=== PATIENT | female | born 1945 | race Caucasian/White ===

== ENCOUNTER 2019-05-28 11:59 | Inpatient (IN) ==
[2019-05-28] MEDS ORDERED: Naloxone 0.4 MG/ML INJ IVP PRN (15:20)
[2019-05-28] MEDS ORDERED: Ondansetron 4 MG/2 ML VIAL IVP PRN (15:20)
[2019-05-28] MEDS ORDERED: Albuterol 2.5 MG/3 ML NEBULIZER IH PRN (16:38)
[2019-05-28] MEDS: Furosemide 40 MG/4 ML VIAL IVP SCH (18:01)
[2019-05-28 19:01] LABS: Folate > 22.3 ng/mL (3.0-16.0); Vitamin B12 342 pg/mL (250-1100)
[2019-05-28] MEDS: *HR* Heparin 5,000 UNIT/ML VIAL SQ SCH (21:35)
[2019-05-29] MEDS: *HR* Heparin 5,000 UNIT/ML VIAL SQ SCH ×3 (05:46→22:49)
[2019-05-29 18:51] LABS: Calcium 9.7 mg/dL (8.6-10.3); Potassium 3.8 mEq/L (3.5-5.1)
[2019-05-29 18:55] LABS: Basophils % 0.4 %; Eosinophils # 0.1 K/mcL (0.0-0.6); Eosinophils % 1.7 %; Hematocrit 36.2 % (35.3-44.9); Hemoglobin 11.4 g/dL (11.5-15.4); Immature Granulocytes % 0.5 % (0-4); Lymphocytes # 1.2 K/mcL (0.6-4.6); Lymphocytes % 14.9 %; Mean Corpuscular HGB Conc 31.5 g/dL (31.6-35.5); Mean Corpuscular Hemoglobin 28.9 pg (28.0-33.3); Mean Corpuscular Volume 91.9 fL (83.0-100.0); Mean Platelet Volume 10.5 fL (9.4-12.4); Monocytes # 0.7 K/mcL (0.0-1.3); Monocytes % 8.4 %; Neutrophils # 6.1 K/mcL (1.6-8.9); Platelet Count 262 K/mcL (140-400); Red Blood Count 3.94 M/mcL (3.82-4.97); Red Cell Distribution Width 13.1 % (11.5-14.5); Segmented Neutrophils % 74.1 %; White Blood Count 8.2 K/mcL (4.3-11.1)
[2019-05-29] MEDS: Fluticasone Propionate Nasal 50 MCG/SPRAY BOTTLE NS SCH (21:33)
[2019-05-29] MEDS: Furosemide 40 MG/4 ML VIAL IVP SCH (21:34)
[2019-05-29] MEDS: Isosorbide MONOnitrate (24 HR) 60 MG TAB.ER.24H PO SCH (21:34)
[2019-05-29] MEDS: Lisinopril 20 MG TABLET PO SCH (21:35)
[2019-05-29] MEDS: amLODIPine 5 MG TABLET PO SCH (21:35)
[2019-05-30 04:01] LABS: Hematocrit 36.4 % (35.3-44.9); Hemoglobin 11.7 g/dL (11.5-15.4); Mean Corpuscular HGB Conc 32.1 g/dL (31.6-35.5); Mean Corpuscular Hemoglobin 28.8 pg (28.0-33.3); Mean Corpuscular Volume 89.7 fL (83.0-100.0); Mean Platelet Volume 10.5 fL (9.4-12.4); Platelet Count 299 K/mcL (140-400); Red Blood Count 4.06 M/mcL (3.82-4.97); Red Cell Distribution Width 13.4 % (11.5-14.5); White Blood Count 8.1 K/mcL (4.3-11.1)
[2019-05-30 04:19] LABS: Calcium 9.5 mg/dL (8.6-10.3); Potassium 3.6 mEq/L (3.5-5.1)
[2019-05-30] MEDS: *HR* Heparin 5,000 UNIT/ML VIAL SQ SCH ×3 (05:54→22:24)
[2019-05-30] MEDS: Isosorbide MONOnitrate (24 HR) 60 MG TAB.ER.24H PO SCH (08:23)
[2019-05-30] MEDS: Fluticasone Propionate Nasal 50 MCG/SPRAY BOTTLE NS SCH (08:23)
[2019-05-30] MEDS: amLODIPine 5 MG TABLET PO SCH (08:23)
[2019-05-30] MEDS: Lisinopril 20 MG TABLET PO SCH (08:23)
[2019-05-30] MEDS: Furosemide 40 MG/4 ML VIAL IVP SCH (08:34)
[2019-05-30 09:59] LABS: Calcium 9.5 mg/dL (8.6-10.3); Potassium 3.9 mEq/L (3.5-5.1)
[2019-05-30] MEDS: 0.9 % Sodium Chloride 1,000 ML IVC SCH (12:16)
[2019-05-31] MEDS: *HR* Heparin 5,000 UNIT/ML VIAL SQ SCH ×3 (05:54→20:56)
[2019-05-31] MEDS ORDERED: Saline Nasal Spray 44 ML BOTTLE NS PRN (06:02)
[2019-05-31 06:30] LABS: Basophils % 0.5 %; Eosinophils # 0.3 K/mcL (0.0-0.6); Eosinophils % 3.7 %; Immature Granulocytes % 0.4 % (0-4); Lymphocytes # 1.6 K/mcL (0.6-4.6); Lymphocytes % 21.1 %; Mean Corpuscular HGB Conc 30.6 g/dL (31.6-35.5); Mean Corpuscular Hemoglobin 28.3 pg (28.0-33.3); Mean Corpuscular Volume 92.5 fL (83.0-100.0); Mean Platelet Volume 10.3 fL (9.4-12.4); Monocytes # 0.7 K/mcL (0.0-1.3); Monocytes % 9.3 %; Neutrophils # 4.9 K/mcL (1.6-8.9); Platelet Count 254 K/mcL (140-400); Red Blood Count 3.89 M/mcL (3.82-4.97); Red Cell Distribution Width 13.2 % (11.5-14.5); White Blood Count 7.6 K/mcL (4.3-11.1)
[2019-05-31 06:49] LABS: Calcium 9.3 mg/dL (8.6-10.3); Potassium 3.9 mEq/L (3.5-5.1)
[2019-05-31] MEDS: Furosemide 40 MG/4 ML VIAL IVP SCH (07:39)
[2019-05-31] MEDS: Isosorbide MONOnitrate (24 HR) 60 MG TAB.ER.24H PO SCH (07:40)
[2019-05-31] MEDS: amLODIPine 5 MG TABLET PO SCH (07:41)
[2019-05-31] MEDS: Fluticasone Propionate Nasal 50 MCG/SPRAY BOTTLE NS SCH (07:41)
[2019-05-31 14:19] LABS: Calcium 8.9 mg/dL (8.6-10.3)
[2019-05-31] MEDS: 0.9 % Sodium Chloride 1,000 ML IVC SCH (14:26)
[2019-06-01] MEDS: *HR* Heparin 5,000 UNIT/ML VIAL SQ SCH (05:38)
[2019-06-01 06:43] LABS: Basophils % 0.5 %; Eosinophils # 0.3 K/mcL (0.0-0.6); Eosinophils % 3.7 %; Hematocrit 33.1 % (35.3-44.9); Hemoglobin 10.4 g/dL (11.5-15.4); Immature Granulocytes % 0.5 % (0-4); Lymphocytes # 1.5 K/mcL (0.6-4.6); Lymphocytes % 19.2 %; Mean Corpuscular HGB Conc 31.4 g/dL (31.6-35.5); Mean Corpuscular Hemoglobin 29.1 pg (28.0-33.3); Mean Corpuscular Volume 92.7 fL (83.0-100.0); Mean Platelet Volume 10.7 fL (9.4-12.4); Monocytes # 0.8 K/mcL (0.0-1.3); Platelet Count 234 K/mcL (140-400); Red Blood Count 3.57 M/mcL (3.82-4.97); Red Cell Distribution Width 13.2 % (11.5-14.5); Segmented Neutrophils % 66.1 %; White Blood Count 7.6 K/mcL (4.3-11.1)
[2019-06-01 07:20] VITALS: BP 155/73
[2019-06-01] MEDS: Fluticasone Propionate Nasal 50 MCG/SPRAY BOTTLE NS SCH (07:35)
[2019-06-01] MEDS: Isosorbide MONOnitrate (24 HR) 60 MG TAB.ER.24H PO SCH (07:35)
[2019-06-01] MEDS: amLODIPine 5 MG TABLET PO SCH (07:35)
[2019-06-01 07:49] LABS: Calcium 9.2 mg/dL (8.6-10.3)
[2019-06-01] MEDS: Furosemide 40 MG/4 ML VIAL IVP SCH (09:51)
== END 2019-06-01 10:14 | disposition home or self-care (01) | DRG 291 ==
LOC: 2ANU → SUATTDRO 14:10
PROVIDERS: ADMIT Student in an Organized Health Care Education/Training Program; ATTEND Family Medicine

== ENCOUNTER 2019-06-12 08:44 | Observation (INO) ==
[2019-06-12] MEDS ORDERED: Naloxone 0.4 MG/ML INJ IVP PRN (11:37)
[2019-06-12] MEDS ORDERED: Azithromycin 500 MG in 0.9 % Sodium Chloride 250 ML IVPB SCH (12:00)
[2019-06-12] MEDS: Ipratropium/Albuterol Neb 3 ML IH SCH ×3 (12:03→20:56)
[2019-06-12] MEDS: cefTRIAXone 1,000 MG in Water for inj. (sterile) 10 ML IVP SCH (12:47)
[2019-06-12] MEDS: amLODIPine 5 MG TABLET PO SCH (12:47)
[2019-06-12] MEDS ORDERED: MethylPREDNISolone 40 MG/ML VIAL IVP SCH (16:00)
[2019-06-12] MEDS: Furosemide 40 MG/4 ML VIAL IVP SCH (17:38)
[2019-06-12] MEDS: *HR* Heparin 5,000 UNIT/ML VIAL SQ SCH (17:38)
[2019-06-12] MEDS: Budesonide/Formoterol 160/4.5 1 PUFF INH IH SCH (20:56)
[2019-06-13] MEDS: Ipratropium/Albuterol Neb 3 ML IH SCH ×7 (01:23→23:46)
[2019-06-13 05:13] LABS: Basophils % 0.1 %; Hematocrit 34.3 % (35.3-44.9); Hemoglobin 10.9 g/dL (11.5-15.4); Immature Granulocytes % 0.4 % (0-4); Mean Corpuscular HGB Conc 31.8 g/dL (31.6-35.5); Mean Corpuscular Hemoglobin 28.6 pg (28.0-33.3); Monocytes # 0.4 K/mcL (0.0-1.3); Monocytes % 3.5 %; Platelet Count 268 K/mcL (140-400); Red Blood Count 3.81 M/mcL (3.82-4.97); Red Cell Distribution Width 13.3 % (11.5-14.5); White Blood Count 12.5 K/mcL (4.3-11.1)
[2019-06-13 05:34] LABS: Magnesium 1.7 mg/dL (1.6-2.6); Phosphorous 3.4 mg/dL (2.7-4.5); Potassium 3.7 mEq/L (3.5-5.1)
[2019-06-13] MEDS: *HR* Heparin 5,000 UNIT/ML VIAL SQ SCH ×2 (05:40→17:03)
[2019-06-13] MEDS: Budesonide/Formoterol 160/4.5 1 PUFF INH IH SCH ×2 (07:44→19:50)
[2019-06-13] MEDS: cefTRIAXone 1,000 MG in Water for inj. (sterile) 10 ML IVP SCH (08:45)
[2019-06-13] MEDS: Isosorbide MONOnitrate (24 HR) 60 MG TAB.ER.24H PO SCH (08:47)
[2019-06-13] MEDS: amLODIPine 5 MG TABLET PO SCH (08:47)
[2019-06-13] MEDS: Furosemide 40 MG/4 ML VIAL IVP SCH ×2 (08:50→17:03)
[2019-06-13] MEDS ORDERED: predniSONE 20 MG TABLET PO SCH (09:00)
[2019-06-13] MEDS: Acetaminophen 325 MG TABLET PO PRN (09:49)
[2019-06-14 03:27] LABS: Hematocrit 32.2 % (35.3-44.9); Hemoglobin 10.5 g/dL (11.5-15.4); Mean Corpuscular HGB Conc 32.6 g/dL (31.6-35.5); Mean Corpuscular Hemoglobin 28.6 pg (28.0-33.3); Mean Corpuscular Volume 87.7 fL (83.0-100.0); Mean Platelet Volume 10.7 fL (9.4-12.4); Platelet Count 268 K/mcL (140-400); Red Blood Count 3.67 M/mcL (3.82-4.97); Red Cell Distribution Width 13.9 % (11.5-14.5); White Blood Count 12.3 K/mcL (4.3-11.1)
[2019-06-14 03:47] LABS: Calcium 9.4 mg/dL (8.6-10.3); Magnesium 1.6 mg/dL (1.6-2.6); Potassium 3.8 mEq/L (3.5-5.1)
[2019-06-14] MEDS: Ipratropium/Albuterol Neb 3 ML IH SCH ×6 (03:57→23:56)
[2019-06-14] MEDS: *HR* Heparin 5,000 UNIT/ML VIAL SQ SCH ×2 (05:30→17:06)
[2019-06-14] MEDS: Budesonide/Formoterol 160/4.5 1 PUFF INH IH SCH ×2 (07:22→20:10)
[2019-06-14] MEDS: amLODIPine 5 MG TABLET PO SCH (08:38)
[2019-06-14] MEDS: Furosemide 40 MG TABLET PO SCH (08:38)
[2019-06-14] MEDS: Isosorbide MONOnitrate (24 HR) 60 MG TAB.ER.24H PO SCH (08:38)
[2019-06-14] MEDS: Acetaminophen 325 MG TABLET PO PRN (15:06)
[2019-06-15] MEDS: Ipratropium/Albuterol Neb 3 ML IH SCH ×3 (03:58→11:03)
[2019-06-15 04:50] LABS: Hematocrit 34.6 % (35.3-44.9); Hemoglobin 11.3 g/dL (11.5-15.4); Mean Corpuscular HGB Conc 32.7 g/dL (31.6-35.5); Mean Corpuscular Hemoglobin 28.5 pg (28.0-33.3); Mean Corpuscular Volume 87.4 fL (83.0-100.0); Mean Platelet Volume 10.9 fL (9.4-12.4); Platelet Count 291 K/mcL (140-400); Red Blood Count 3.96 M/mcL (3.82-4.97); Red Cell Distribution Width 13.9 % (11.5-14.5); White Blood Count 9.2 K/mcL (4.3-11.1)
[2019-06-15] MEDS: *HR* Heparin 5,000 UNIT/ML VIAL SQ SCH (05:02)
[2019-06-15 05:05] LABS: Calcium 9.5 mg/dL (8.6-10.3); Magnesium 1.8 mg/dL (1.6-2.6); Potassium 3.8 mEq/L (3.5-5.1)
[2019-06-15] MEDS: Budesonide/Formoterol 160/4.5 1 PUFF INH IH SCH (07:33)
[2019-06-15 07:42] VITALS: BP 190/71
[2019-06-15] MEDS: amLODIPine 5 MG TABLET PO SCH (10:02)
[2019-06-15] MEDS: Furosemide 40 MG TABLET PO SCH (10:02)
[2019-06-15] MEDS: Isosorbide MONOnitrate (24 HR) 60 MG TAB.ER.24H PO SCH (10:02)
[2019-06-15] MEDS ORDERED: hydrOXYzine pamoate 25 MG CAPSULE PO PRN (10:03)
[2019-06-15] MEDS: Acetaminophen 325 MG TABLET PO PRN (10:12)
[2019-06-15] MEDS ORDERED: hydrALAZINE 25 MG TABLET PO SCH (12:00)
== END 2019-06-15 14:08 | disposition home or self-care (01) ==
LOC: 2NENU → SUATTDRO 11:07
PROVIDERS: ADMIT Student in an Organized Health Care Education/Training Program; ATTEND Internal Medicine

== ENCOUNTER 2019-07-12 11:38 | Inpatient (IN) ==
[2019-07-12] MEDS ORDERED: Furosemide 40 MG/4 ML VIAL IVP ONE (12:42)
[2019-07-12] MEDS ORDERED: Nitroglycerin 0.4 MG TAB.SUBL SL PRN (13:20)
[2019-07-12] MEDS ORDERED: Isovue-370 500 ML BOTTLE IVP ONE (13:21)
[2019-07-12] MEDS ORDERED: Cefepime HCl 2,000 MG in Water for inj. (sterile) 20 ML IVP STA (13:23)
[2019-07-12] MEDS ORDERED: Azithromycin 500 MG in 0.9 % Sodium Chloride 250 ML IVPB ONE (13:23)
[2019-07-12 13:26] LABS: Basophils % 0.2 %; Eosinophils # 0.1 K/mcL (0.0-0.6); Hematocrit 31.7 % (35.3-44.9); Hemoglobin 10.1 g/dL (11.5-15.4); Immature Granulocytes % 0.7 % (0-4); Lymphocytes # 0.8 K/mcL (0.6-4.6); Lymphocytes % 8.2 %; Mean Corpuscular HGB Conc 31.9 g/dL (31.6-35.5); Mean Corpuscular Hemoglobin 28.5 pg (28.0-33.3); Mean Corpuscular Volume 89.3 fL (83.0-100.0); Mean Platelet Volume 10.8 fL (9.4-12.4); Monocytes # 0.6 K/mcL (0.0-1.3); Neutrophils # 8.1 K/mcL (1.6-8.9); Platelet Count 222 K/mcL (140-400); Red Blood Count 3.55 M/mcL (3.82-4.97); Red Cell Distribution Width 14.1 % (11.5-14.5); Segmented Neutrophils % 83.9 %; White Blood Count 9.7 K/mcL (4.3-11.1)
[2019-07-12 13:47] LABS: Calcium 9.7 mg/dL (8.6-10.3); Potassium 3.7 mEq/L (3.5-5.1); Troponin I 0.03 ng/mL (< 0.04)
[2019-07-12] MEDS ORDERED: Nitroglycerin 25 MG/250 ML INFUS..BTL IVC SCH (15:15)
[2019-07-12] MEDS ORDERED: Ondansetron ODT 4 MG TAB.RAPDIS SL PRN (15:34)
[2019-07-12] MEDS ORDERED: Ondansetron 4 MG/2 ML VIAL IVP PRN (15:34)
[2019-07-12] MEDS ORDERED: Naloxone 0.4 MG/ML INJ IVP PRN (15:34)
[2019-07-12] MEDS ORDERED: amLODIPine 5 MG TABLET PO SCH (17:15)
[2019-07-12] MEDS: Nitroglycerin 25 MG/250 ML INFUS..BTL IVC SCH (18:57)
[2019-07-12] MEDS: hydrALAZINE 25 MG TABLET PO SCH (19:02)
[2019-07-12 19:09] LABS: VBG HCO3 26 mEq/L (21-27); VBG PCO2 42 mmHg (41-51); VBG PH 7.39 pH Units (7.32-7.42); VBG PO2 145 mmHg (25-50)
[2019-07-12] MEDS: amLODIPine 5 MG TABLET PO SCH (20:24)
[2019-07-12] MEDS: Ipratropium/Albuterol Neb 3 ML IH SCH (22:51)
[2019-07-13] MEDS: hydrALAZINE 25 MG TABLET PO SCH ×5 (00:27→23:38)
[2019-07-13] MEDS: Ipratropium/Albuterol Neb 3 ML IH SCH ×4 (04:21→22:06)
[2019-07-13] MEDS: Nitroglycerin 25 MG/250 ML INFUS..BTL IVC SCH (04:38)
[2019-07-13] MEDS ORDERED: amLODIPine 5 MG TABLET PO SCH (09:00)
[2019-07-13] MEDS: Isosorbide MONOnitrate (24 HR) 60 MG TAB.ER.24H PO SCH (09:08)
[2019-07-13] MEDS: carvediloL 25 MG TABLET PO SCH ×2 (09:08→17:19)
[2019-07-13] MEDS: amLODIPine 5 MG TABLET PO SCH (09:08)
[2019-07-13] MEDS ORDERED: Nitroglycerin 25 MG/250 ML INFUS..BTL IVC SCH (10:15)
[2019-07-13 10:18] LABS: Basophils % 0.2 %; Eosinophils # 0.1 K/mcL (0.0-0.6); Eosinophils % 1.7 %; Hematocrit 27.8 % (35.3-44.9); Immature Granulocytes % 0.5 % (0-4); Lymphocytes # 0.5 K/mcL (0.6-4.6); Lymphocytes % 6.5 %; Mean Corpuscular HGB Conc 32.4 g/dL (31.6-35.5); Mean Corpuscular Hemoglobin 29.2 pg (28.0-33.3); Mean Corpuscular Volume 90.3 fL (83.0-100.0); Mean Platelet Volume 11.1 fL (9.4-12.4); Monocytes # 0.6 K/mcL (0.0-1.3); Monocytes % 7.2 %; Platelet Count 188 K/mcL (140-400); Red Blood Count 3.08 M/mcL (3.82-4.97); Red Cell Distribution Width 14.3 % (11.5-14.5); Segmented Neutrophils % 83.9 %; White Blood Count 8.3 K/mcL (4.3-11.1)
[2019-07-13 10:26] LABS: Prothrombin Time 10.9 Seconds (9.4-12.1)
[2019-07-13 10:38] LABS: Calcium 9.2 mg/dL (8.6-10.3); Potassium 3.7 mEq/L (3.5-5.1)
[2019-07-13] MEDS: Furosemide 20 MG/2 ML VIAL IVP SCH ×2 (12:08→17:20)
[2019-07-13] MEDS: *HR* Heparin 5,000 UNIT/ML VIAL SQ SCH (17:19)
[2019-07-14 00:45] LABS: Bilirubin,Urine Negative (Negative); Blood,Urine Negative (Negative); Clarity,Urine Clear (Clear); Color,Urine Yellow (Yellow); Glucose,Urine (UA) Normal (Normal); Ketones,Urine Negative (Negative); PH,Urine 5.5 pH Units (5.0-8.0); Protein,Urine Negative (Neg-Trace); Specific Gravity,Urine 1.013 (1.010-1.025); Urobilinogen,Urine Normal (Normal)
[2019-07-14 00:46] LABS: Leukocyte Esterase,Urine Trace (Negative); Nitrite,Urine Negative (Negative)
[2019-07-14 00:51] LABS: Bacteria,Urine Few per hpf (None-Few); Hyaline Casts,Urine Few per lpf (None-Few); Squamous Epithelial Cell,Urine Many per lpf (None-Few)
[2019-07-14 01:15] LABS: Protein/Creatinine Ratio,Urine 0.16 mg/mg (0.00-0.20); Sodium, Urine 55.6 mEq/L
[2019-07-14 01:46] LABS: Creatinine,Urine 106 mg/dL
[2019-07-14 01:47] LABS: Microalbum/Creatinine Ratio,Ur 17 mcg/mg (Less than 30); Microalbumin,Urine 18 mg/L
[2019-07-14] MEDS: Ipratropium/Albuterol Neb 3 ML IH SCH ×4 (03:35→22:05)
[2019-07-14] MEDS: *HR* Heparin 5,000 UNIT/ML VIAL SQ SCH ×2 (05:25→17:02)
[2019-07-14] MEDS: hydrALAZINE 25 MG TABLET PO SCH ×3 (05:25→17:02)
[2019-07-14 08:29] LABS: Basophils % 0.3 %; Eosinophils # 0.1 K/mcL (0.0-0.6); Eosinophils % 1.5 %; Hematocrit 29.2 % (35.3-44.9); Hemoglobin 9.4 g/dL (11.5-15.4); Immature Granulocytes % 0.5 % (0-4); Lymphocytes # 0.5 K/mcL (0.6-4.6); Lymphocytes % 6.5 %; Mean Corpuscular HGB Conc 32.2 g/dL (31.6-35.5); Mean Corpuscular Hemoglobin 28.9 pg (28.0-33.3); Mean Corpuscular Volume 89.8 fL (83.0-100.0); Mean Platelet Volume 10.8 fL (9.4-12.4); Monocytes # 0.6 K/mcL (0.0-1.3); Monocytes % 7.7 %; Neutrophils # 6.6 K/mcL (1.6-8.9); Platelet Count 187 K/mcL (140-400); Red Blood Count 3.25 M/mcL (3.82-4.97); Red Cell Distribution Width 14.4 % (11.5-14.5); Segmented Neutrophils % 83.5 %; White Blood Count 7.9 K/mcL (4.3-11.1)
[2019-07-14] MEDS: amLODIPine 5 MG TABLET PO SCH (08:38)
[2019-07-14] MEDS: Isosorbide MONOnitrate (24 HR) 60 MG TAB.ER.24H PO SCH (08:38)
[2019-07-14] MEDS: Furosemide 20 MG/2 ML VIAL IVP SCH ×2 (08:38→17:02)
[2019-07-14] MEDS: carvediloL 25 MG TABLET PO SCH ×2 (08:38→17:02)
[2019-07-14 08:40] LABS: Potassium 3.5 mEq/L (3.5-5.1)
[2019-07-15] MEDS: hydrALAZINE 25 MG TABLET PO SCH ×4 (00:46→17:29)
[2019-07-15] MEDS: Ipratropium/Albuterol Neb 3 ML IH SCH ×4 (04:12→22:34)
[2019-07-15 06:18] LABS: Calcium 9.3 mg/dL (8.6-10.3); Potassium 3.5 mEq/L (3.5-5.1)
[2019-07-15] MEDS: *HR* Heparin 5,000 UNIT/ML VIAL SQ SCH ×2 (06:20→17:29)
[2019-07-15] MEDS ORDERED: Saline Nasal Spray 44 ML BOTTLE NS PRN (06:28)
[2019-07-15] MEDS: carvediloL 25 MG TABLET PO SCH ×2 (08:25→17:29)
[2019-07-15] MEDS: amLODIPine 5 MG TABLET PO SCH (08:25)
[2019-07-15] MEDS: Isosorbide MONOnitrate (24 HR) 60 MG TAB.ER.24H PO SCH (08:25)
[2019-07-15] MEDS: Furosemide 20 MG/2 ML VIAL IVP SCH ×2 (08:26→17:29)
[2019-07-16] MEDS: hydrALAZINE 25 MG TABLET PO SCH ×4 (00:52→16:34)
[2019-07-16] MEDS: Ipratropium/Albuterol Neb 3 ML IH SCH ×4 (04:03→22:28)
[2019-07-16] MEDS: *HR* Heparin 5,000 UNIT/ML VIAL SQ SCH ×2 (05:09→16:34)
[2019-07-16 05:54] LABS: Calcium 8.9 mg/dL (8.6-10.3); Potassium 3.5 mEq/L (3.5-5.1)
[2019-07-16] MEDS: Isosorbide MONOnitrate (24 HR) 60 MG TAB.ER.24H PO SCH (07:45)
[2019-07-16] MEDS: Furosemide 20 MG/2 ML VIAL IVP SCH (07:45)
[2019-07-16] MEDS: amLODIPine 5 MG TABLET PO SCH (07:46)
[2019-07-16] MEDS: carvediloL 25 MG TABLET PO SCH ×2 (07:46→16:33)
[2019-07-16] MEDS ORDERED: Azithromycin 250 MG TABLET PO ONE (10:43)
[2019-07-16] MEDS: predniSONE 20 MG TABLET PO SCH (11:05)
[2019-07-16] MEDS: cefTRIAXone 1,000 MG in 0.9 % Sodium Chloride Mini Bag 100 ML IVPB SCH (11:05)
[2019-07-16] MEDS: Furosemide 40 MG/4 ML VIAL IVP SCH (16:34)
[2019-07-17] MEDS: hydrALAZINE 25 MG TABLET PO SCH ×4 (00:59→17:24)
[2019-07-17] MEDS: Ipratropium/Albuterol Neb 3 ML IH SCH ×4 (04:56→22:13)
[2019-07-17] MEDS: *HR* Heparin 5,000 UNIT/ML VIAL SQ SCH (05:54)
[2019-07-17 06:11] LABS: Hematocrit 28.2 % (35.3-44.9); Hemoglobin 8.8 g/dL (11.5-15.4); Immature Granulocytes % 0.5 % (0-4); Lymphocytes # 0.6 K/mcL (0.6-4.6); Lymphocytes % 9.7 %; Mean Corpuscular HGB Conc 31.2 g/dL (31.6-35.5); Mean Corpuscular Hemoglobin 28.5 pg (28.0-33.3); Mean Corpuscular Volume 91.3 fL (83.0-100.0); Mean Platelet Volume 10.8 fL (9.4-12.4); Monocytes # 0.3 K/mcL (0.0-1.3); Monocytes % 4.4 %; Neutrophils # 5.4 K/mcL (1.6-8.9); Platelet Count 187 K/mcL (140-400); Red Blood Count 3.09 M/mcL (3.82-4.97); Red Cell Distribution Width 13.8 % (11.5-14.5); Segmented Neutrophils % 85.4 %; White Blood Count 6.4 K/mcL (4.3-11.1)
[2019-07-17 06:35] LABS: Magnesium 1.8 mg/dL (1.6-2.6)
[2019-07-17 06:36] LABS: Potassium 3.9 mEq/L (3.5-5.1)
[2019-07-17] MEDS: Isosorbide MONOnitrate (24 HR) 60 MG TAB.ER.24H PO SCH (09:18)
[2019-07-17] MEDS: Furosemide 40 MG/4 ML VIAL IVP SCH ×2 (09:18→17:24)
[2019-07-17] MEDS: cefTRIAXone 1,000 MG in 0.9 % Sodium Chloride Mini Bag 100 ML IVPB SCH (09:18)
[2019-07-17] MEDS: predniSONE 20 MG TABLET PO SCH (09:18)
[2019-07-17] MEDS: carvediloL 25 MG TABLET PO SCH ×2 (09:18→17:24)
[2019-07-17] MEDS: Azithromycin 250 MG TABLET PO SCH (09:18)
[2019-07-18] MEDS: hydrALAZINE 25 MG TABLET PO SCH ×4 (01:00→16:47)
[2019-07-18] MEDS: Ipratropium/Albuterol Neb 3 ML IH SCH ×4 (03:39→21:51)
[2019-07-18] MEDS: Isosorbide MONOnitrate (24 HR) 60 MG TAB.ER.24H PO SCH (07:45)
[2019-07-18] MEDS: Furosemide 40 MG/4 ML VIAL IVP SCH (07:45)
[2019-07-18] MEDS: carvediloL 25 MG TABLET PO SCH ×2 (07:45→16:47)
[2019-07-18] MEDS: predniSONE 20 MG TABLET PO SCH (07:45)
[2019-07-18] MEDS: Azithromycin 250 MG TABLET PO SCH (07:45)
[2019-07-18] MEDS: cefTRIAXone 1,000 MG in 0.9 % Sodium Chloride Mini Bag 100 ML IVPB SCH (07:46)
[2019-07-18 07:54] LABS: Hematocrit 28.7 % (35.3-44.9); Hemoglobin 9.2 g/dL (11.5-15.4)
[2019-07-18 08:13] LABS: Calcium 9.2 mg/dL (8.6-10.3); Potassium 3.8 mEq/L (3.5-5.1)
[2019-07-18] MEDS ORDERED: Ferumoxytol 510 MG in 0.9 % Sodium Chloride 100 ML IVPB ONE (08:30)
[2019-07-18] MEDS ORDERED: Sennosides 8.6 MG TABLET PO ONE (12:34)
[2019-07-18] MEDS ORDERED: Furosemide 40 MG TABLET PO SCH (17:00)
[2019-07-19] MEDS: hydrALAZINE 25 MG TABLET PO SCH ×4 (00:13→16:40)
[2019-07-19] MEDS: Ipratropium/Albuterol Neb 3 ML IH SCH ×4 (04:03→22:37)
[2019-07-19] MEDS: Isosorbide MONOnitrate (24 HR) 60 MG TAB.ER.24H PO SCH (07:47)
[2019-07-19] MEDS: carvediloL 25 MG TABLET PO SCH ×2 (07:48→16:40)
[2019-07-19] MEDS: predniSONE 20 MG TABLET PO SCH (07:48)
[2019-07-19] MEDS: Azithromycin 250 MG TABLET PO SCH (07:48)
[2019-07-19] MEDS: cefTRIAXone 1,000 MG in 0.9 % Sodium Chloride Mini Bag 100 ML IVPB SCH (07:48)
[2019-07-19 09:09] LABS: Calcium 9.3 mg/dL (8.6-10.3); Potassium 3.7 mEq/L (3.5-5.1)
[2019-07-19] MEDS ORDERED: Sennosides 8.6 MG TABLET PO ONE (12:34)
[2019-07-20] MEDS: hydrALAZINE 25 MG TABLET PO SCH ×5 (00:04→23:12)
[2019-07-20] MEDS: Ipratropium/Albuterol Neb 3 ML IH SCH ×4 (03:50→22:39)
[2019-07-20 06:54] LABS: Calcium 8.9 mg/dL (8.6-10.3); Potassium 3.8 mEq/L (3.5-5.1)
[2019-07-20] MEDS: cefTRIAXone 1,000 MG in 0.9 % Sodium Chloride Mini Bag 100 ML IVPB SCH (07:08)
[2019-07-20] MEDS: predniSONE 20 MG TABLET PO SCH (07:09)
[2019-07-20] MEDS: carvediloL 25 MG TABLET PO SCH ×2 (07:09→16:45)
[2019-07-20] MEDS: Azithromycin 250 MG TABLET PO SCH (07:09)
[2019-07-20] MEDS: Isosorbide MONOnitrate (24 HR) 60 MG TAB.ER.24H PO SCH (07:09)
[2019-07-21] MEDS: Ipratropium/Albuterol Neb 3 ML IH SCH ×4 (04:07→22:46)
[2019-07-21] MEDS: hydrALAZINE 25 MG TABLET PO SCH ×4 (05:59→18:57)
[2019-07-21 06:59] LABS: Calcium 9.3 mg/dL (8.6-10.3); Potassium 3.9 mEq/L (3.5-5.1)
[2019-07-21] MEDS: predniSONE 20 MG TABLET PO SCH (07:13)
[2019-07-21] MEDS: Isosorbide MONOnitrate (24 HR) 60 MG TAB.ER.24H PO SCH (07:13)
[2019-07-21] MEDS: carvediloL 25 MG TABLET PO SCH ×2 (07:14→16:38)
[2019-07-21] MEDS: cefTRIAXone 1,000 MG in 0.9 % Sodium Chloride Mini Bag 100 ML IVPB SCH (07:14)
[2019-07-21] MEDS: Furosemide 40 MG TABLET PO SCH ×2 (11:37→16:38)
[2019-07-22] MEDS: hydrALAZINE 25 MG TABLET PO SCH ×3 (00:14→12:26)
[2019-07-22] MEDS: Ipratropium/Albuterol Neb 3 ML IH SCH ×2 (03:54→10:02)
[2019-07-22] MEDS: Furosemide 40 MG TABLET PO SCH (08:44)
[2019-07-22] MEDS: Isosorbide MONOnitrate (24 HR) 60 MG TAB.ER.24H PO SCH (08:44)
[2019-07-22] MEDS: cefTRIAXone 1,000 MG in 0.9 % Sodium Chloride Mini Bag 100 ML IVPB SCH (08:44)
[2019-07-22] MEDS: carvediloL 25 MG TABLET PO SCH (08:44)
[2019-07-22 11:08] VITALS: BP 156/67
== END 2019-07-22 14:09 | disposition home health service (06) | DRG 291 ==
LOC: 2ANU 11:38 → EMEROOARM 11:38 → SUATTDRO 16:42 → 2ANU 16:47 → SUATTDRO 07-13 19:27
PROVIDERS: ADMIT Internal Medicine; ATTEND Internal Medicine

== ENCOUNTER 2020-04-27 15:30 | Observation (INO) ==
[2020-04-27 16:59] LABS: Basophils % 0.5 %; Eosinophils # 0.2 K/mcL (0.0-0.6); Eosinophils % 2.8 %; Hematocrit 34.9 % (35.3-44.9); Hemoglobin 10.7 g/dL (11.5-15.4); Immature Granulocytes % 0.6 % (0-4); Lymphocytes # 1.7 K/mcL (0.6-4.6); Lymphocytes % 20.9 %; Mean Corpuscular HGB Conc 30.7 g/dL (31.6-35.5); Mean Corpuscular Hemoglobin 29.5 pg (28.0-33.3); Mean Corpuscular Volume 96.1 fL (83.0-100.0); Mean Platelet Volume 10.7 fL (9.4-12.4); Monocytes # 0.7 K/mcL (0.0-1.3); Monocytes % 8.5 %; Neutrophils # 5.5 K/mcL (1.6-8.9); Platelet Count 197 K/mcL (140-400); Red Blood Count 3.63 M/mcL (3.82-4.97); Red Cell Distribution Width 12.2 % (11.5-14.5); Segmented Neutrophils % 66.7 %; White Blood Count 8.3 K/mcL (4.3-11.1)
[2020-04-27 17:19] LABS: Calcium 9.7 mg/dL (8.6-10.3); Magnesium 1.9 mg/dL (1.6-2.6); Potassium 3.8 mEq/L (3.5-5.1); Troponin I 0.03 ng/mL (< 0.04)
[2020-04-27] MEDS ORDERED: Furosemide 40 MG/4 ML VIAL IVP ONE (18:08)
[2020-04-27] MEDS ORDERED: Naloxone 0.4 MG/ML INJ IVP PRN (18:23)
[2020-04-27] MEDS ORDERED: Acetaminophen 325 MG TABLET PO PRN (18:23)
[2020-04-27] MEDS ORDERED: Ondansetron 4 MG/2 ML VIAL IVP PRN (18:23)
[2020-04-28 04:15] LABS: Basophils % 0.6 %; Eosinophils # 0.2 K/mcL (0.0-0.6); Eosinophils % 2.4 %; Hematocrit 31.6 % (35.3-44.9); Hemoglobin 10.1 g/dL (11.5-15.4); Immature Granulocytes % 0.5 % (0-4); Lymphocytes # 1.6 K/mcL (0.6-4.6); Lymphocytes % 24.4 %; Mean Corpuscular Hemoglobin 30.8 pg (28.0-33.3); Mean Corpuscular Volume 96.3 fL (83.0-100.0); Mean Platelet Volume 10.9 fL (9.4-12.4); Monocytes # 0.7 K/mcL (0.0-1.3); Monocytes % 10.4 %; Neutrophils # 4.1 K/mcL (1.6-8.9); Platelet Count 189 K/mcL (140-400); Red Blood Count 3.28 M/mcL (3.82-4.97); Red Cell Distribution Width 12.1 % (11.5-14.5); Segmented Neutrophils % 61.7 %; White Blood Count 6.6 K/mcL (4.3-11.1)
[2020-04-28 04:34] LABS: Calcium 9.7 mg/dL (8.6-10.3); Magnesium 1.9 mg/dL (1.6-2.6); Potassium 3.7 mEq/L (3.5-5.1)
[2020-04-28] MEDS ORDERED: carvediloL 25 MG TABLET PO SCH (08:00)
[2020-04-28] MEDS ORDERED: cloNIDine HCL 0.1 MG TABLET PO SCH (09:00)
[2020-04-28] MEDS ORDERED: Isosorbide MONOnitrate (24 HR) 60 MG TAB.ER.24H PO SCH (09:00)
[2020-04-28] MEDS ORDERED: calcitrioL 0.25 MCG CAPSULE PO SCH (09:00)
[2020-04-28] MEDS ORDERED: Furosemide 40 MG TABLET PO SCH (09:00)
[2020-04-28] MEDS: hydrALAZINE 25 MG TABLET PO SCH ×2 (10:55→11:14)
[2020-04-28 11:29] VITALS: BP 151/70
[2020-04-28] MEDS ORDERED: hydrALAZINE 25 MG TABLET PO SCH (12:00)
== END 2020-04-28 12:00 | disposition home or self-care (01) ==
LOC: EMEROOARM 15:30 → 3BNU 15:30 → SUATTDRO 18:34 → 3BNU 19:38
PROVIDERS: ADMIT Pharmacist; ATTEND Internal Medicine